=== PATIENT | male | born 1960 | race Asian ===

== ENCOUNTER 2022-03-21 17:37 | Emergency (ER) | payer OTHER ==
[~2022-03-21] VITALS: Ht 162.6 cm; Wt 91.6 kg
[2022-03-21 17:37] VITALS: BP 168/98; TEMP 98
[2022-03-21 18:11] LABS: PLATELET COUNT 217 K/uL (142-355)
[2022-03-21 18:25] LABS: POTASSIUM 4.2 mmol/L (3.6-5.2)
[2022-03-22] MEDS ORDERED: ENTERIC COATED325 MG PO (09:14)
[2022-03-22] MEDS ORDERED: [UNRECOGNIZED DRUG - OTHER] PO (09:15)
[2022-03-22] MEDS ORDERED: CITA20TA2 PO (09:15)
[2022-03-22] MEDS ORDERED: GLIP10TA55 PO (09:16)
[2022-03-22] MEDS ORDERED: SITA50TA2 PO (09:16)
[2022-03-22] MEDS ORDERED: FURO40TA93 PO (09:16)
[2022-03-22] MEDS ORDERED: LANTUS100 UNIT/M SC (09:17)
[2022-03-22] MEDS ORDERED: LATA0.00 OPTH (09:18)
[2022-03-22] MEDS ORDERED: RISP25IN IM (09:19)
[2022-03-22] MEDS ORDERED: ZINC220 MG PO (09:19)
[2022-03-22] MEDS ORDERED: ELIQUIS5 MG PO (09:20)
[2022-03-22] MEDS ORDERED: RISP1TAB PO (09:21)
[2022-03-22] MEDS ORDERED: DIVALPROEX500 MG PO (09:21)
[2022-03-22] MEDS ORDERED: HUMALOG KW100 UNIT/M SC (09:23)
[2022-03-22] MEDS ORDERED: HALO5INJ3 IM (09:24)
== END 2022-03-21 19:50 | disposition still patient (30) ==
LOC: ED 17:37
PROVIDERS: Emergency Medicine Emergency Medical Services
DX: R46.89 Other symptoms and signs involving appearance and behavior (principal); R45.1 Restlessness and agitation; Z11.52 Encounter for screening for COVID-19; Z04.6 Encounter for general psychiatric examination, requested by authority
CPT/HCPCS: 80053; 85027; 87635; 93005; 99283; U0003

== ENCOUNTER 2022-05-06 20:34 | Emergency (ER) | payer OTHER ==
[~2022-05-06] VITALS: Ht 175.3 cm; Wt 89.8 kg
[~2022-05-06 20:34] MED LIST: APIX1TAB PO; CHOL100034 PO; CITA20TA2 PO; DIVALPROEX500 MG PO; ELIQUIS5 MG PO; ENTERIC COATED325 MG PO; FURO40TA93 PO; GLIP10TA55 PO; GLUCOTROL XL 5MG TAB PO; HALO5INJ3 IM; HUMALOG KW100 UNIT/M SC; INSU100P SC; INSU300I SC; LANTUS100 UNIT/M SC; LATA0.00 OPTH; RISP1TAB PO; RISP25IN IM; RISP50IN IM; SB ASPIRIN325 M1 PO; SERT50TA PO; SITA50TA2 PO; ZINC220 MG PO; [UNRECOGNIZED DRUG - OTHER] PO
[2022-05-06 20:35] VITALS: BP 128/64; TEMP 97.9
[2022-05-06 21:23] LABS: PLATELET COUNT 211 K/uL (142-355)
[2022-05-06 21:29] LABS: POTASSIUM 4.4 mmol/L (3.6-5.2)
[2022-05-07] MEDS ORDERED: LEVEMIR FL100 UNIT/M SC (08:31)
[2022-05-07] MEDS ORDERED: SERT50TA PO (08:41)
[2022-05-07] MEDS ORDERED: MUCUS RELIEF E600 MG PO (08:46)
[2022-05-07] MEDS ORDERED: DIVALPROEX125 MG PO (08:54)
[2022-05-07] MEDS ORDERED: LORA1TAB17 PO (09:00)
== END 2022-05-06 22:00 | disposition home or self-care (01) ==
LOC: ED 20:34
PROVIDERS: Internal Medicine
DX: F03.911 Unspecified dementia, unspecified severity, with agitation (principal); Z11.52 Encounter for screening for COVID-19; Z04.6 Encounter for general psychiatric examination, requested by authority
CPT/HCPCS: 36415; 80053; 85027; 87635; 93005; 99283; U0003